=== PATIENT | male | born 1995 | race Hispanic/Latino ===

== ENCOUNTER 2017-12-19 17:48 | Emergency (ER) | payer BC ==
[~2017-12-19] VITALS: Ht 167.6 cm; Wt 78.6 kg
[2017-12-19] MEDS ORDERED: IBUPROFEN 600 MG TAB PO STA (18:09)
[2017-12-19] MEDS ORDERED: IBUPROFEN400 MG PO (19:11)
[2017-12-19 19:33] VITALS: BP 140/80
== END 2017-12-19 19:35 | disposition home or self-care (01) ==
LOC: FSED 17:48
DX: N50.89 Other specified disorders of the male genital organs (principal)
CPT/HCPCS: 81003; 93970; 99283